=== PATIENT | male | born 1945 | race Caucasian/White ===

== ENCOUNTER 2018-02-11 16:19 | Emergency (ER) | payer OTHER ==
[~2018-02-11] VITALS: Ht 188 cm; Wt 127.0 kg
--- NOTE | 2018-02-11 16:19 | NUR ---
[id number] FOR WITNESSED CARDIAC ARREST, DOWN FOR 20 MIN. CPR INITIATED BY WITNESSES. EPI X3, AMIODARONE 300MG GIVEN BY EMS, SHOCKED 7X BY EMS. BS-[id number], IV INTACT ON R EJ, 20G. CPR CONTINUED UPON ARRIVAL WITH MD AT BEDSIDE.
[2018-02-11] MEDS ORDERED: CALCIUM CHLORIDE 1,000 MG/10 ML DISP.SYRIN IV ONE (16:25)
[2018-02-11] MEDS ORDERED: EPINEPHRINE (1:10,000) SYRINGE 1 MG/10 ML DISP.SYRIN IVP ONE (16:25)
[2018-02-11] MEDS ORDERED: AMIODARONE 150 MG/3 ML VIAL IV ONE (16:25)
[2018-02-11] MEDS ORDERED: SODIUM BICARBONATE SYR 50 MEQ/50 ML DISP.SYRIN IV ONE (16:25)
--- NOTE | 2018-02-11 16:26 | NUR ---
ANOUNCED BY DR. DALY AT THIS TIME. NO PULSES PRESENT, NO CARDIAC ACTIVITY SEEN ON ULTRASOUND.
--- NOTE | 2018-02-11 18:20 | NUR ---
PATIENT TRANSPORTED TO [facility] – [place].
--- NOTE | 2018-02-11 18:25 | NUR ---
SEE CODE BLUE RECORD SHEET FOR MEDICATION ADMINISTRATION.
[2018-02-11 18:39] VITALS: BP 0/0
== END 2018-02-11 18:20 ==
LOC: ER 16:24
DX: I46.9 Cardiac arrest, cause unspecified (principal); E11.9 Type 2 diabetes mellitus without complications; I10 Essential (primary) hypertension
CPT/HCPCS: A4606; J0171; J0282; J3490; Z7610